=== PATIENT | male | born 1950 | race Caucasian/White ===

== ENCOUNTER 2017-04-06 09:57 | Day surgery (SDC) | payer OTHER ==
[~2017-04-06 09:57] MED LIST: LIDOCAINE HCL 1% MPF SOL ONE; PROPOFOL 500 MG/50 ML EMU IV ONE
[2017-04-06 12:36] VITALS: BP 138/81; PULSE 64; RESP 20; TEMP 97; O2SAT 100
== END 2017-04-06 13:15 | disposition home or self-care (01) ==
LOC: SURG 09:57
PROVIDERS: ATTEND Internal Medicine Gastroenterology
DX: Z12.11 Encounter for screening for malignant neoplasm of colon (principal); Z80.0 Family history of malignant neoplasm of digestive organs; L29.0 Pruritus ani; K64.8 Other hemorrhoids
CPT/HCPCS: 45378; J2001; J2704

== ENCOUNTER 2018-12-31 18:45 | Emergency (ER) | payer OTHER ==
[2018-12-31 19:50] VITALS: RESP 20; TEMP 99.1; O2SAT 96
[2018-12-31 20:02] LABS: INFLUENZA A NEGATIVE (NEGATIVE); INFLUENZA B NEGATIVE (NEGATIVE)
[2018-12-31] MEDS: CODEINE/GUAIFENESIN 5 ML ML PO ONE (20:50)
[2018-12-31] MEDS ORDERED: CODEINE/GUAIFENESIN 5 ML ML ONE (20:51)
[2018-12-31 21:06] VITALS: BP 118/71; PULSE 98
== END 2018-12-31 20:55 | disposition home or self-care (01) | DRG 153 ==
LOC: ED 18:45
DX: J06.9 Acute upper respiratory infection, unspecified (principal)
CPT/HCPCS: 71046; 87430; 87804; 99283; A9270-GY